=== PATIENT | female | born 1985 | race Caucasian/White ===

== ENCOUNTER 2016-12-15 02:07 | Emergency (ER) | payer OTHER ==
[~2016-12-15] VITALS: Ht 175.3 cm; Wt 70.9 kg
[2016-12-15 02:47] LABS: HEMATOCRIT 37.6 % (34.6-47.8); HEMOGLOBIN 12.4 g/dL (11.7-16.4)
[2016-12-15 03:01] LABS: BLOOD UREA NITROGEN 9 mg/dL (7-18)
[2016-12-15 03:08] LABS: ASPARTATE AMINO TRANSFERASE 25 U/L (15-37)
[2016-12-15 08:23] VITALS: BP 96/56
== END 2016-12-15 09:31 | disposition home or self-care (01) ==
LOC: ED 05:39
DX: F10.220 Alcohol dependence with intoxication, uncomplicated (principal)
CPT/HCPCS: 36415; 80053; 80307; 85025; 99284; G0479